=== PATIENT | female | born 1995 | race Caucasian/White ===

== ENCOUNTER 2016-11-10 07:09 | Day surgery (SDC) | payer OTHER ==
[~2016-11-10] VITALS: Ht 157.5 cm; Wt 107.0 kg
[2016-11-10 07:42] VITALS: BP 147/80; PULSE 87; TEMP 98
[2016-11-10] MEDS ORDERED: NEXIUM 40MG40 MG PO (07:48)
[2016-11-10] MEDS ORDERED: VENTOLIN0.09 MG (07:51)
[2016-11-10 08:55] VITALS: BP 147/80; PULSE 82; TEMP 98.4
[2016-11-10 09:05] VITALS: BP 115/80; PULSE 77
[2016-11-10 09:20] VITALS: BP 120/77; PULSE 80
[2016-11-10 09:26] VITALS: BP 112/62; PULSE 82
== END 2016-11-10 10:00 | disposition home or self-care (01) ==
LOC: SDCO 07:09
DX: K31.84 Gastroparesis (principal)
CPT/HCPCS: OP; J2250; J3010; J7030

== ENCOUNTER → 2016-11-19 | Outpatient (CLI) | payer OTHER ==
[~2016-11-19] MED LIST: NEXIUM 40MG40 MG PO; VENTOLIN0.09 MG
== END ==
LOC: COL.RAD 08:15
DX: R19.4 Change in bowel habit (principal)
CPT/HCPCS: A9541